=== PATIENT | male | born 1945 | race Caucasian/White ===

== ENCOUNTER 2019-06-08 17:46 | Inpatient (IN) | payer MEDICARE ==
[~2019-06-08] VITALS: Ht 185.4 cm; Wt 108.1 kg
[2019-06-08] MEDS ORDERED: IV NORMAL SALINE 1000ML BAG 1,000 ML IV ONE (18:00)
--- NOTE | 2019-06-08 18:05 | PHYS DOC ---
Past Medical History Past Medical History: Other Additional Past Medical Histor: CHRONIC BACK PAIN (SOPHIA PRITCHARD DO) Past Surgical History: Appendectomy, Knee Replacement, Other (SHOULDER , ESOPHAGUS) (SOPHIA PRITCHARD DO) Attending Signature I have participated in the care of this patient and I have reviewed and agree with all pertinent clinical information above including history, exam, and recommendations. (LUZ UGARTE MD) Adult General Chief Complaint Chief Complaint: SYNCOPE HPI HPI Patient is a 74 year old male who was brought here for shopping area after he was found down the floor. Patient did not remember what happened. Denies any chest pain, abdominal pain, no nausea vomiting. Patient denied headache, no neck pain. No back pain. He said he was at the mall shopping, THEN he woke up on the floor, looking at EMS. She denies any history of heart disease, no history of diabetes, no history hypertension. Patient has history of chronic pain, he is on oxycodone. Patient's doctor at the [facility]. He said he feels okay now. EMS REPORTED THAT PATIENT WAS CONFUSED, PALE AND DIAPHORESIS WHEN THEY FOUND HIM ON FLOOR. (SOPHIA PRITCHARD DO) Review of Systems Review of Systems aLL OTHER ros IS NEGATIVE UNLESS OTHERWISE NOTED IN hpi (OSPHIA PRITCHARD DO) Current Medications Current Medications Current Medications Medications (Trade) Dose Ordered Sig/Jade Start Time Stop Time Status Last Admin Dose Admin Sodium Chloride 1,000 ml @ 1,000 mls/hr 1X ONCE 06/08/19 18:00 06/08/19 18:59 DC 06/08/19 18:08 1,000 MLS/HR (LUZ UGARTE MD) Allergies Allergies Allergies Coded Allergies Type Severity Reaction Last Updated Verified No Known Drug Allergies 06/08/19 No (LUZ UGARTE MD) Physical Exam Physical Exam See above Constitutional: Well developed, well nourished, no acute distress, non-toxic elena earance. [] HENT: Normocephalic, atraumatic, bilateral external ears normal, oropharynx dried, no oral exudates, nose normal. [] Eyes: PERRLA, EOMI, conjunctiva normal, no discharge. [] Neck: Normal range of motion, no tenderness, supple, no stridor. [] Cardiovascular:Heart rate regular rhythm, no murmur [] Lungs & Thorax: Bilateral breath sounds clear to auscultation [] Abdomen: Bowel sounds normal, soft, no tenderness, no masses, no pulsatile m asses. [] Skin: Warm, dry, no erythema, no rash. [] Back: No tenderness, no CVA tenderness. [] Extremities: No tenderness, no cyanosis, no clubbing, ROM intact, no edema. [] Neurologic: Alert and oriented X 3, normal motor function, normal sensory function, no focal deficits noted. [] Psychologic: Affect normal, judgement normal, mood normal. [] (SOPHIA PRITCHARD DO) Current Patient Data Vital Signs Vital Signs Date Time Temp Pulse Resp B/P (MAP) Pulse Ox O2 Delivery O2 Flow Rate FiO2 06/08/19 18:17 76 18 172/72 (105) 93 Room Air 06/08/19 18:10 98.7 98.7 (LUZ UGARTE MD) Lab Values Laboratory Tests Test 06/08/19 17:51 White Blood Count 10.1 x10^3/uL (4.0-11.0) Red Blood Count 5.23 x10^6/uL (4.30-5.70) Hemoglobin 14.3 g/dL (13.0-17.5) Hematocrit 43.5 % (39.0-53.0) Mean Corpuscular Volume 83 fL (79-100) Mean Corpuscular Hemoglobin 27 pg (25-35) Mean Corpuscular Hemoglobin Concent 33 g/dL (31-37) Red Cell Distribution Width 15.2 % (11.5-14.5) H Platelet Count 232 x10^3/uL (140-400) Neutrophils (%) (Auto) 58 % (31-73) Lymphocytes (%) (Auto) 30 % (24-48) Monocytes (%) (Auto) 9 % (0-9) Eosinophils (%) (Auto) 2 % (0-3) Basophils (%) (Auto) 0 % (0-3) Neutrophils # (Auto) 5.9 x10^3/uL (1.8-7.7) Lymphocytes # (Auto) 3.0 x10^3/uL (1.0-4.8) Monocytes # (Auto) 0.9 x10^3/uL (0.0-1.1) Eosinophils # (Auto) 0.2 x10^3/uL (0.0-0.7) Basophils # (Auto) 0.0 x10^3/uL (0.0-0.2) Sodium Level 139 mmol/L (136-145) Potassium Level 4.0 mmol/L (3.5-5.1) Chloride Level 104 mmol/L (98-107) Carbon Dioxide Level 27 mmol/L (21-32) Anion Gap 8 (6-14) Blood Urea Nitrogen 20 mg/dL (8-26) Creatinine 1.3 mg/dL (0.7-1.3) Estimated GFR (Cockcroft-Gault) 53.8 BUN/Creatinine Ratio 15 (6-20) Glucose Level 108 mg/dL (70-99) H Calcium Level 9.0 mg/dL (8.5-10.1) Magnesium Level 2.0 mg/dL (1.8-2.4) Total Bilirubin 0.8 mg/dL (0.2-1.0) Aspartate Amino Transferase (AST) 20 U/L (15-37) Alanine Aminotransferase (ALT) 14 U/L (16-63) L Alkaline Phosphatase 87 U/L (46-116) Troponin I Quantitative < 0.017 ng/mL (0.000-0.055) PD-Zcl-O-Type Natriuretic Peptide 222 pg/mL (0-449) Total Protein 6.9 g/dL (6.4-8.2) Albumin 3.6 g/dL (3.4-5.0) Albumin/Globulin Ratio 1.1 (1.0-1.7) Lipase 69 U/L (73-393) L Thyroid Stimulating Hormone (TSH) 1.861 uIU/mL (0.358-3.74) Laboratory Tests 06/08/19 17:51 Laboratory Tests 06/08/19 17:51 (LUZ UGARTE MD) Lab Values Laboratory Tests Test 06/08/19 17:51 White Blood Count 10.1 x10^3/uL (4.0-11.0) Red Blood Count 5.23 x10^6/uL (4.30-5.70) Hemoglobin 14.3 g/dL (13.0-17.5) Hematocrit 43.5 % (39.0-53.0) Mean Corpuscular Volume 83 fL (79-100) Mean Corpuscular Hemoglobin 27 pg (25-35) Mean Corpuscular Hemoglobin Concent 33 g/dL (31-37) Red Cell Distribution Width 15.2 % (11.5-14.5) H Platelet Count 232 x10^3/uL (140-400) Neutrophils (%) (Auto) 58 % (31-73) Lymphocytes (%) (Auto) 30 % (24-48) Monocytes (%) (Auto) 9 % (0-9) Eosinophils (%) (Auto) 2 % (0-3) Basophils (%) (Auto) 0 % (0-3) Neutrophils # (Auto) 5.9 x10^3/uL (1.8-7.7) Lymphocytes # (Auto) 3.0 x10^3/uL (1.0-4.8) Monocytes # (Auto) 0.9 x10^3/uL (0.0-1.1) Eosinophils # (Auto) 0.2 x10^3/uL (0.0-0.7) Basophils # (Auto) 0.0 x10^3/uL (0.0-0.2) Sodium Level 139 mmol/L (136-145) Potassium Level 4.0 mmol/L (3.5-5.1) Chloride Level 104 mmol/L (98-107) Carbon Dioxide Level 27 mmol/L (21-32) Anion Gap 8 (6-14) Blood Urea Nitrogen 20 mg/dL (8-26) Creatinine 1.3 mg/dL (0.7-1.3) Estimated GFR (Cockcroft-Gault) 53.8 BUN/Creatinine Ratio 15 (6-20) Glucose Level 108 mg/dL (70-99) H Calcium Level 9.0 mg/dL (8.5-10.1) Magnesium Level 2.0 mg/dL (1.8-2.4) Total Bilirubin 0.8 mg/dL (0.2-1.0) Aspartate Amino Transferase (AST) 20 U/L (15-37) Alanine Aminotransferase (ALT) 14 U/L (16-63) L Alkaline Phosphatase 87 U/L (46-116) Troponin I Quantitative < 0.017 ng/mL (0.000-0.055) AX-Zwc-N-Type Natriuretic Peptide 222 pg/mL (0-449) Total Protein 6.9 g/dL (6.4-8.2) Albumin 3.6 g/dL (3.4-5.0) Albumin/Globulin Ratio 1.1 (1.0-1.7) Lipase 69 U/L (73-393) L Thyroid Stimulating Hormone (TSH) 1.861 uIU/mL (0.358-3.74) Laboratory Tests 06/08/19 17:51 Laboratory Tests 06/08/19 17:51 (SOPHIA PRITCHARD DO) EKG EKG EKG WAS DONE AT 1751, RATE OF 89 BPM, PVC, RBBB, NO STEMI. (SOPHIA PRITCHARD DO) Radiology/Procedures Radiology/Procedures [] (SOPHIA PRITCHARD DO) Course & Med Decision Making Course & Med Decision Making Pertinent Labs and Imaging studies reviewed. (See chart for details) [] (SOPHIA PRITCHARD DO) Course & Med Decision Making Labs/Imaging reviewed. EkG with prolonged QTc and syncopal episode. Mg, K, Calcium normal. CT reviewed without acute process identified. Trop normal. Patient denies chest pain at this time however given prolonged QTc and syncop will admit with further Cardiology evaluation. (LUZ UGARTE MD) Dragon Disclaimer Dragon Disclaimer This electronic medical record was generated, in whole or in part, using a voice recognition dictation system. (SOPHIA PRITCHARD DO) Departure Departure Impression: Primary Impression: Syncope and collapse Additional Impression: Prolonged Q-T interval on ECG Disposition: ADMITTED INPATIENT Admitting Physician: FELICITA (LUZ UGARTE MD) Condition: STABLE Critical Care Time Critical care time was [] minutes exclusive of procedures. (SOPHIA PRITCHARD DO) Critical Care Time Critical care time was 35 minutes exclusive of procedures. (LUZ UGARTE MD) Problem Qualifiers SOPHIA PRITCHARD DO Jun 08, 2019 18:05 LUZ UGARTE MD Jun 08, 2019 19:14
[2019-06-08 18:11] LABS: BASO % 0 % (0-3); EOS # 0.2 x10^3/uL (0.0-0.7); EOS % 2 % (0-3); HEMATOCRIT 43.5 % (39.0-53.0); HEMOGLOBIN 14.3 g/dL (13.0-17.5); LYMPH % 30 % (24-48); MEAN CORPUSCULAR HEMOGLOBIN 27 pg (25-35); MEAN CORPUSCULAR HGB CONC 33 g/dL (31-37); MEAN CORPUSCULAR VOLUME 83 fL (79-100); MONO # 0.9 x10^3/uL (0.0-1.1); MONO % 9 % (0-9); NEUT # 5.9 x10^3/uL (1.8-7.7); NEUT % 58 % (31-73); PLATELET COUNT 232 x10^3/uL (140-400); RED BLOOD COUNT 5.23 x10^6/uL (4.30-5.70); RED CELL DISTRIBUTION WIDTH 15.2 % (11.5-14.5); WHITE BLOOD COUNT 10.1 x10^3/uL (4.0-11.0)
[2019-06-08 18:25] LABS: CREATININE 1.3 mg/dL (0.7-1.3); GFR 53.8
[2019-06-08 18:30] LABS: ALBUMIN 3.6 g/dL (3.4-5.0); ALBUMIN/GLOBULIN RATIO 1.1 (1.0-1.7); TOTAL BILIRUBIN 0.8 mg/dL (0.2-1.0); TOTAL PROTEIN 6.9 g/dL (6.4-8.2)
--- NOTE | 2019-06-08 19:01 | RAD ---
CT scan of the head without contrast 06/08/2019 Clinical History: Syncope. Fall with headache. Technique: Unenhanced, contiguous, 5 mm axial sections were obtained through the head. One or more of the following individualized dose reduction techniques were utilized for this study: 1. Automated exposure control. 2. Adjustment of the mA and/or kV according to patient size. 3. Use of iterative reconstruction technique. Findings: There is generalized parenchymal atrophy. Areas of decreased attenuation are seen within the periventricular and subcortical white matter of both cerebral hemispheres consistent with areas of small vessel ischemic disease. No acute parenchymal abnormality is seen. No extra-axial fluid collection is noted. No skull fracture is seen. Impression: No acute intracranial abnormality is seen. CT scan of the cervical spine without contrast 06/08/2019 Clinical history: Fall with neck pain. Are Technique: Unenhanced, contiguous, 0.625 mm axial sections were obtained through the cervical spine. Axial, coronal and sagittal reconstructed images were obtained. One or more of the following individualized dose reduction techniques were utilized for this study: 1. Automated exposure control. 2. Adjustment of the mA and/or kV according to patient size. 3. Use of iterative reconstruction technique. Findings: Sagittal and coronal reconstructed images demonstrate reversal of the normal cervical lordosis. Very mild lateral curvature of the cervical spine is seen convex to the left. Degenerative changes consisting of disc space narrowing, vertebral endplate sclerosis and mild to moderate anterior and posterior vertebral body osteophyte formation are seen throughout the cervical disc spaces. No fracture or subluxation of the cervical vertebrae is seen. Degenerative changes are seen involving the uncovertebral and facet joints throughout the cervical disc spaces. No fracture or subluxation of the cervical vertebrae is seen. Impression: No fracture or subluxation of the cervical vertebra is identified. Electronically signed by: Burt Gómez MD (06/08/2019 6:59 PM) [id number]
[2019-06-08] MEDS ORDERED: ACETAMINOPHEN 325 MG TABLET. PO PRN ×2 (19:30→22:15)
[2019-06-08 20:37] LABS: BILIRUBIN,URINE NEGATIVE (NEG); CLARITY,URINE CLEAR; COLOR,URINE YELLOW; NITRITE,URINE NEGATIVE (NEG); PROTEIN,URINE NEGATIVE (NEG-TRACE); UROBILINOGEN,URINE 0.2 mg/dL (0.2 mg/dL)
[2019-06-08 20:47] LABS: SQUAMOUS EPITHELIAL CELL,UR OCC /LPF
[2019-06-08 20:48] LABS: BACTERIA,URINE 0 /HPF (0-FEW); RBC,URINE 0 /HPF (0-2); WBC,URINE 0 /HPF (0-4)
[2019-06-08] MEDS ORDERED: oxyCODONE IR 5 MG TABLET PO PRN (22:15)
--- NOTE | 2019-06-08 22:24 | PDOC1 ---
History and Physical Date of Admission Date of Admission DATE: 06/08/19 TIME: 22:20 Source Source: Chart review, Patient History of Present Illness History of Present Illness Mr. Hutchison, is a 74 year old male admit for syncope, He was at a shopping area after he was found down the floor.he had no recollection, and feels fine, Denies any chest pain, abdominal pain, no nausea vomiting. Patient denied headache, no neck pain. No back pain. He said he was at the mall shopping, awoke on the floor, looking at EMS. scant med history,k Patient has history of chronic pain, he is on oxycodone for back pain from scoliosis and left hip pain,. Patient's doctor at the [facility]. he is 50% service connected for PTSD, Past Medical History Cardiovascular: No pertinent hx Pulmonary: No pertinent hx Psych: Anxiety, Other (ptsd) Musculoskeletal: low back pain, Osteoarthritis, Other (scoliosis) Renal/: No pertinent hx Endocrine: No pertinent hx Social History Smoke: Quit ALCOHOL: none Drugs: None Current Problem List Problem List Problems Medical Problems: (1) Prolonged Q-T interval on ECG Status: Acute (2) Syncope and collapse Status: Acute Current Medications Current Medications Current Medications Sodium Chloride 1,000 ml @ 1,000 mls/hr 1X ONCE IV Last administered on 06/08/19at 18:08; Start 06/08/19 at 18:00; Stop 06/08/19 at 18:59; Status DC Acetaminophen (Tylenol) 650 mg PRN Q4HRS PRN PO FEVER; Start 06/08/19 at 19:30; Stop 06/09/19 at 19:29 Oxycodone HCl (Roxicodone) 20 mg PRN Q6HRS PRN PO SEVERE PAIN; Start 06/08/19 at 22:15 Acetaminophen (Tylenol) 650 mg PRN Q6HRS PRN PO pain; Start 06/08/19 at 22:15; Status UNV Amlodipine Besylate (Norvasc) 2.5 mg DAILY PO ; Start 06/09/19 at 09:00; Status UNV Allergies Allergies: Coded Allergies: No Known Drug Allergies (Unverified , 06/08/19) ROS General: No: Chills, Night Sweats, Fatigue, Malaise, Appetite, Other PSYCHOLOGICAL ROS: No: Anxiety, Behavioral Disorder, Concentration difficultie, Decreased libido, Depression, Disorientation, Hallucinations, Hostility, Irritablity, Memory difficulties, Mood Swings, Obsessive thoughts, Physical abuse, Sexual abuse, Sleep disturbances, Suicidal ideation, Other Eyes: No Blurry vision, No Decreased vision, No Double vision, No Dry eyes, No Excessive tearing, No Eye Pain, No Itchy Eyes, No Loss of vision, No Photophobia, No Scotomata, No Uses contacts, No Uses glasses, No Other Respiratory: No: Cough, Hemoptysis, Orthopnea, Pleuritic Pain, Shortness of breath, SOB with excertion, Sputum Changes, Stridor, Tachypnea, Wheezing, Other Cardiovascular: No Chest Pain, No Palpitations, No Orthopnea, No Paroxysmal Noc. Dyspnea, No Edema, No Lt Headedness, No Other Gastrointestinal: No Nausea, No Vomiting, No Abdominal Pain, No Diarrhea, No Constipation, No Melena, No Hematochezia, No Other Genitourinary: No Dysuria, No Frequency, No Incontinence, No Hematuria, No Retention, No Discharge, No Urgency, No Pain, No Flank Pain, No Other, No , No , No , No , No , No , No Musculoskeletal: Yes Joint Pain, Yes Joint Stiffness, Yes Pain In: (back, hip); No Gait Disturbance, No Joint Swelling, No Muscle Pain, No Muscular Weakness, No Swelling In:, No Other Neurological: No Behavorial Changes, No Bowel/Bladder ControlChng, No Confusion, No Dizziness, No Gait Disturbance, No Headaches, No Impaired Coord/balance, No Memory Loss, No Numbness/Tingling, No Seizures, No Speech Problems, No Tremors, No Visual Changes, No Weakness, No Other Skin: Yes Dry Skin; No Eczema, No Hair Changes, No Lumps, No Mole Changes, No Mottling, No Nail Changes, No Pruritus, No Rash, No Skin Lesion Changes, No Other, No Acne Physical Exam General: Alert, Oriented X3, Cooperative, No acute distress HEENT: Atraumatic, PERRLA, Mucous membr. moist/pink Lungs: Clear to auscultation, Normal air movement Heart: S1S2, no gallops Rectal Exam: not examined Extremities: No clubbing, No cyanosis, No edema, Normal pulses Skin: No breakdown, No significant lesion Neuro: Normal speech, Normal tone, Sensation intact, Cranial nerves 3-12 NL Psych/Mental Status: Mental status NL, Mood NL Vitals Vitals Vital Signs Date Time Temp Pulse Resp B/P (MAP) Pulse Ox O2 Delivery O2 Flow Rate FiO2 06/08/19 19:51 72 18 172/74 (106) 96 Room Air 06/08/19 18:10 98.7 98.7 Labs Labs Laboratory Tests Test 06/08/19 17:51 06/08/19 20:30 White Blood Count 10.1 x10^3/uL (4.0-11.0) Red Blood Count 5.23 x10^6/uL (4.30-5.70) Hemoglobin 14.3 g/dL (13.0-17.5) Hematocrit 43.5 % (39.0-53.0) Mean Corpuscular Volume 83 fL (79-100) Mean Corpuscular Hemoglobin 27 pg (25-35) Mean Corpuscular Hemoglobin Concent 33 g/dL (31-37) Red Cell Distribution Width 15.2 % (11.5-14.5) Platelet Count 232 x10^3/uL (140-400) Neutrophils (%) (Auto) 58 % (31-73) Lymphocytes (%) (Auto) 30 % (24-48) Monocytes (%) (Auto) 9 % (0-9) Eosinophils (%) (Auto) 2 % (0-3) Basophils (%) (Auto) 0 % (0-3) Neutrophils # (Auto) 5.9 x10^3/uL (1.8-7.7) Lymphocytes # (Auto) 3.0 x10^3/uL (1.0-4.8) Monocytes # (Auto) 0.9 x10^3/uL (0.0-1.1) Eosinophils # (Auto) 0.2 x10^3/uL (0.0-0.7) Basophils # (Auto) 0.0 x10^3/uL (0.0-0.2) Sodium Level 139 mmol/L (136-145) Potassium Level 4.0 mmol/L (3.5-5.1) Chloride Level 104 mmol/L (98-107) Carbon Dioxide Level 27 mmol/L (21-32) Anion Gap 8 (6-14) Blood Urea Nitrogen 20 mg/dL (8-26) Creatinine 1.3 mg/dL (0.7-1.3) Estimated GFR (Cockcroft-Gault) 53.8 BUN/Creatinine Ratio 15 (6-20) Glucose Level 108 mg/dL (70-99) Calcium Level 9.0 mg/dL (8.5-10.1) Magnesium Level 2.0 mg/dL (1.8-2.4) Total Bilirubin 0.8 mg/dL (0.2-1.0) Aspartate Amino Transf (AST/SGOT) 20 U/L (15-37) Alanine Aminotransferase (ALT/SGPT) 14 U/L (16-63) Alkaline Phosphatase 87 U/L (46-116) Troponin I Quantitative < 0.017 ng/mL (0.000-0.055) XP-Woi-X-Type Natriuretic Peptide 222 pg/mL (0-449) Total Protein 6.9 g/dL (6.4-8.2) Albumin 3.6 g/dL (3.4-5.0) Albumin/Globulin Ratio 1.1 (1.0-1.7) Lipase 69 U/L (73-393) Thyroid Stimulating Hormone (TSH) 1.861 uIU/mL (0.358-3.74) Urine Collection Type Unknown Urine Color Yellow Urine Clarity Clear Urine pH 5.0 Urine Specific Sixes 1.015 Urine Protein Negative mg/dL (NEG-TRACE) Urine Glucose (UA) Negative mg/dL (NEG) Urine Ketones (Stick) Negative mg/dL (NEG) Urine Blood Negative (NEG) Urine Nitrite Negative (NEG) Urine Bilirubin Negative (NEG) Urine Urobilinogen Dipstick 0.2 mg/dL (0.2 mg/dL) Urine Leukocyte Esterase Negative (NEG) Urine RBC 0 /HPF (0-2) Urine WBC 0 /HPF (0-4) Urine Squamous Epithelial Cells Occ /LPF Urine Bacteria 0 /HPF (0-FEW) Urine Mucus Slight /LPF Laboratory Tests Test 06/08/19 17:51 06/08/19 20:30 White Blood Count 10.1 x10^3/uL (4.0-11.0) Red Blood Count 5.23 x10^6/uL (4.30-5.70) Hemoglobin 14.3 g/dL (13.0-17.5) Hematocrit 43.5 % (39.0-53.0) Mean Corpuscular Volume 83 fL (79-100) Mean Corpuscular Hemoglobin 27 pg (25-35) Mean Corpuscular Hemoglobin Concent 33 g/dL (31-37) Red Cell Distribution Width 15.2 % (11.5-14.5) Platelet Count 232 x10^3/uL (140-400) Neutrophils (%) (Auto) 58 % (31-73) Lymphocytes (%) (Auto) 30 % (24-48) Monocytes (%) (Auto) 9 % (0-9) Eosinophils (%) (Auto) 2 % (0-3) Basophils (%) (Auto) 0 % (0-3) Neutrophils # (Auto) 5.9 x10^3/uL (1.8-7.7) Lymphocytes # (Auto) 3.0 x10^3/uL (1.0-4.8) Monocytes # (Auto) 0.9 x10^3/uL (0.0-1.1) Eosinophils # (Auto) 0.2 x10^3/uL (0.0-0.7) Basophils # (Auto) 0.0 x10^3/uL (0.0-0.2) Sodium Level 139 mmol/L (136-145) Potassium Level 4.0 mmol/L (3.5-5.1) Chloride Level 104 mmol/L (98-107) Carbon Dioxide Level 27 mmol/L (21-32) Anion Gap 8 (6-14) Blood Urea Nitrogen 20 mg/dL (8-26) Creatinine 1.3 mg/dL (0.7-1.3) Estimated GFR (Cockcroft-Gault) 53.8 BUN/Creatinine Ratio 15 (6-20) Glucose Level 108 mg/dL (70-99) Calcium Level 9.0 mg/dL (8.5-10.1) Magnesium Level 2.0 mg/dL (1.8-2.4) Total Bilirubin 0.8 mg/dL (0.2-1.0) Aspartate Amino Transf (AST/SGOT) 20 U/L (15-37) Alanine Aminotransferase (ALT/SGPT) 14 U/L (16-63) Alkaline Phosphatase 87 U/L (46-116) Troponin I Quantitative < 0.017 ng/mL (0.000-0.055) LR-Dar-A-Type Natriuretic Peptide 222 pg/mL (0-449) Total Protein 6.9 g/dL (6.4-8.2) Albumin 3.6 g/dL (3.4-5.0) Albumin/Globulin Ratio 1.1 (1.0-1.7) Lipase 69 U/L (73-393) Thyroid Stimulating Hormone (TSH) 1.861 uIU/mL (0.358-3.74) Urine Collection Type Unknown Urine Color Yellow Urine Clarity Clear Urine pH 5.0 Urine Specific Sixes 1.015 Urine Protein Negative mg/dL (NEG-TRACE) Urine Glucose (UA) Negative mg/dL (NEG) Urine Ketones (Stick) Negative mg/dL (NEG) Urine Blood Negative (NEG) Urine Nitrite Negative (NEG) Urine Bilirubin Negative (NEG) Urine Urobilinogen Dipstick 0.2 mg/dL (0.2 mg/dL) Urine Leukocyte Esterase Negative (NEG) Urine RBC 0 /HPF (0-2) Urine WBC 0 /HPF (0-4) Urine Squamous Epithelial Cells Occ /LPF Urine Bacteria 0 /HPF (0-FEW) Urine Mucus Slight /LPF VTE Prophylaxis Ordered VTE Prophylaxis Devices: No VTE Pharmacological Prophylaxi: No Assessment/Plan Assessment/Plan syncope with LOC long QT syndrome, tele, CV consult , admit, QTc > 500 recent admit for narcotic overdose, poss fentanyl laced oxy as he got some not from a pharmacy chronic pain disorder, takes 20 oxy QID obese, BMI 31 htn, start [facility] TYSHAWN FLORES MD Jun 08, 2019 22:24
[2019-06-08 22:29] LABS: BARBITURATES NEG (NEG); BENZODIAZEPINES NEG (NEG); CANNABINOIDS NEG (NEG); COCAINE NEG (NEG); METHADONE NEG (NEG); OPIATES POS (NEG); PHENCYCLIDINE NEG (NEG)
[2019-06-08 22:30] LABS: AMPHETAMINE/METHAMPHETAMINE NEG (NEG)
--- NOTE | 2019-06-08 23:01 | EKG ---
[facility] [address] [place] [address] Test Date: 2019-06-08 Test Time: 17:51:26 Pat Name: GARCIA WILKES Department: Room: ED HOLD 4 Gender: M Automatic Mounter: : 1945 Requested By: SOPHIA PRITCHARD Order Number: [id number] Reading MD: Arron Katz MD Measurements Intervals [place] Rate: 89 P: 33 NV: 214 QRS: -83 QRSD: 174 T: 62 QT: 416 QTc: 507 Interpretive Statements SINUS RHYTHM VENTRICULAR PREMATURE COMPLEX(ES), BIGEMINY PROLONGED NV INTERVAL Electronically Signed On 06-09-2019 14:54:13 AUDIOLOGY ASSISTANT by Arron Katz MD
--- NOTE | 2019-06-08 23:18 | RAD ---
Exam: Chest one view INDICATION: Ankle TECHNIQUE: Frontal view of the chest Comparisons: None FINDINGS: The cardiomediastinal silhouette and pulmonary vessels are within normal limits. Small left pleural effusion. Remaining lungs are clear. IMPRESSION: Trace left pleural effusion. Electronically signed by: Abiel Stoner MD (06/08/2019 11:15 PM) [id number]
[2019-06-09] MEDS ORDERED: ZOLPIDEM 5 MG TABLET. PO PRN
[2019-06-09 01:30] LABS: BASO % 0 % (0-3); EOS # 0.3 x10^3/uL (0.0-0.7); EOS % 4 % (0-3); HEMATOCRIT 38.2 % (39.0-53.0); HEMOGLOBIN 12.7 g/dL (13.0-17.5); LYMPH # 1.9 x10^3/uL (1.0-4.8); LYMPH % 25 % (24-48); MEAN CORPUSCULAR HEMOGLOBIN 28 pg (25-35); MEAN CORPUSCULAR HGB CONC 33 g/dL (31-37); MEAN CORPUSCULAR VOLUME 83 fL (79-100); MONO # 0.8 x10^3/uL (0.0-1.1); MONO % 11 % (0-9); NEUT # 4.7 x10^3/uL (1.8-7.7); NEUT % 60 % (31-73); PLATELET COUNT 185 x10^3/uL (140-400); RED BLOOD COUNT 4.61 x10^6/uL (4.30-5.70); RED CELL DISTRIBUTION WIDTH 15.5 % (11.5-14.5); WHITE BLOOD COUNT 7.7 x10^3/uL (4.0-11.0)
[2019-06-09 01:46] LABS: ALBUMIN 2.8 g/dL (3.4-5.0); CALCIUM 8.1 mg/dL (8.5-10.1); CREATININE 1.2 mg/dL (0.7-1.3); POTASSIUM 3.7 mmol/L (3.5-5.1); TOTAL BILIRUBIN 0.4 mg/dL (0.2-1.0); TOTAL PROTEIN 5.6 g/dL (6.4-8.2)
[2019-06-09 07:17] VITALS: BP 141/68
[2019-06-09] MEDS ORDERED: amLODIPine BESYLATE 5 MG TABLET PO SCH (09:00)
[2019-06-09 11:07] VITALS: BP 133/78
[2019-06-09 14:34] VITALS: BP 139/77
--- NOTE | 2019-06-09 15:19 | EKG ---
[facility] [address] [place] [address] Test Date: 2019-06-09 Test Time: 15:01:30 Pat Name: GARCIA WILKES Department: Room: ED HOLD 11 Gender: M [employer] Marker: : 1945 Requested By: SAMUEL HAIRSTON Order Number: [id number] Reading MD: Samuel Hairston MD Measurements Intervals [place] Rate: 75 P: 26 GA: 210 QRS: -60 QRSD: 140 T: 30 QT: 442 QTc: 496 Interpretive Statements SINUS RHYTHM ABNORMAL LEFT AXIS DEVIATION LEFT ANTERIOR FASCICULAR BLOCK RIGHT BUNDLE BRANCH BLOCK BIFASCICULAR BLOCK Electronically Signed On 06-09-2019 21:25:30 ASSOCIATE PROFESSOR OF MEDIA ARTS by Samuel Hairston MD
--- NOTE | 2019-06-09 15:19 | PDOC3 ---
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 Narcotic overdose? essential hypertension Brief Hospital Course Allergies Allergies Coded Allergies Type Severity Reaction Last Updated Verified No Known Drug Allergies 06/08/19 No Vital Signs Vital Signs Date Time Temp Pulse Resp B/P (MAP) Pulse Ox O2 Delivery O2 Flow Rate FiO2 06/09/19 14:34 98.3 83 20 139/77 (97) 98 Room Air 98.3 Lab Results Laboratory Tests Test 06/08/19 17:51 06/08/19 20:30 06/08/19 22:40 06/09/19 01:20 White Blood Count 10.1 x10^3/uL (4.0-11.0) 7.7 x10^3/uL (4.0-11.0) Red Blood Count 5.23 x10^6/uL (4.30-5.70) 4.61 x10^6/uL (4.30-5.70) Hemoglobin 14.3 g/dL (13.0-17.5) 12.7 g/dL (13.0-17.5) Hematocrit 43.5 % (39.0-53.0) 38.2 % (39.0-53.0) Mean Corpuscular Volume 83 fL (79-100) 83 fL (79-100) Mean Corpuscular Hemoglobin 27 pg (25-35) 28 pg (25-35) Mean Corpuscular Hemoglobin Concent 33 g/dL (31-37) 33 g/dL (31-37) Red Cell Distribution Width 15.2 % (11.5-14.5) 15.5 % (11.5-14.5) Platelet Count 232 x10^3/uL (140-400) 185 x10^3/uL (140-400) Neutrophils (%) (Auto) 58 % (31-73) 60 % (31-73) Lymphocytes (%) (Auto) 30 % (24-48) 25 % (24-48) Monocytes (%) (Auto) 9 % (0-9) 11 % (0-9) Eosinophils (%) (Auto) 2 % (0-3) 4 % (0-3) Basophils (%) (Auto) 0 % (0-3) 0 % (0-3) Neutrophils # (Auto) 5.9 x10^3/uL (1.8-7.7) 4.7 x10^3/uL (1.8-7.7) Lymphocytes # (Auto) 3.0 x10^3/uL (1.0-4.8) 1.9 x10^3/uL (1.0-4.8) Monocytes # (Auto) 0.9 x10^3/uL (0.0-1.1) 0.8 x10^3/uL (0.0-1.1) Eosinophils # (Auto) 0.2 x10^3/uL (0.0-0.7) 0.3 x10^3/uL (0.0-0.7) Basophils # (Auto) 0.0 x10^3/uL (0.0-0.2) 0.0 x10^3/uL (0.0-0.2) Sodium Level 139 mmol/L (136-145) 141 mmol/L (136-145) Potassium Level 4.0 mmol/L (3.5-5.1) 3.7 mmol/L (3.5-5.1) Chloride Level 104 mmol/L (98-107) 107 mmol/L (98-107) Carbon Dioxide Level 27 mmol/L (21-32) 29 mmol/L (21-32) Anion Gap 8 (6-14) 5 (6-14) Blood Urea Nitrogen 20 mg/dL (8-26) 19 mg/dL (8-26) Creatinine 1.3 mg/dL (0.7-1.3) 1.2 mg/dL (0.7-1.3) Estimated GFR (Cockcroft-Gault) 53.8 59.0 BUN/Creatinine Ratio 15 (6-20) 16 (6-20) Glucose Level 108 mg/dL (70-99) 133 mg/dL (70-99) Calcium Level 9.0 mg/dL (8.5-10.1) 8.1 mg/dL (8.5-10.1) Magnesium Level 2.0 mg/dL (1.8-2.4) Total Bilirubin 0.8 mg/dL (0.2-1.0) 0.4 mg/dL (0.2-1.0) Aspartate Amino Transf (AST/SGOT) 20 U/L (15-37) 10 U/L (15-37) Alanine Aminotransferase (ALT/SGPT) 14 U/L (16-63) 9 U/L (16-63) Alkaline Phosphatase 87 U/L (46-116) 73 U/L (46-116) Troponin I Quantitative < 0.017 ng/mL (0.000-0.055) < 0.017 ng/mL (0.000-0.055) < 0.017 ng/mL (0.000-0.055) EV-Dal-G-Type Natriuretic Peptide 222 pg/mL (0-449) Total Protein 6.9 g/dL (6.4-8.2) 5.6 g/dL (6.4-8.2) Albumin 3.6 g/dL (3.4-5.0) 2.8 g/dL (3.4-5.0) Albumin/Globulin Ratio 1.1 (1.0-1.7) 1.0 (1.0-1.7) Lipase 69 U/L (73-393) Thyroid Stimulating Hormone (TSH) 1.861 uIU/mL (0.358-3.74) Urine Collection Type Unknown Urine Color Yellow Urine Clarity Clear Urine pH 5.0 Urine Specific [place] 1.015 Urine Protein Negative mg/dL (NEG-TRACE) Urine Glucose (UA) Negative mg/dL (NEG) Urine Ketones (Stick) Negative mg/dL (NEG) Urine Blood Negative (NEG) Urine Nitrite Negative (NEG) Urine Bilirubin Negative (NEG) Urine Urobilinogen Dipstick 0.2 mg/dL (0.2 mg/dL) Urine Leukocyte Esterase Negative (NEG) Urine RBC 0 /HPF (0-2) Urine WBC 0 /HPF (0-4) Urine Squamous Epithelial Cells Occ /LPF Urine Bacteria 0 /HPF (0-FEW) Urine Mucus Slight /LPF Urine Opiates Screen Pos (NEG) Urine Methadone Screen Neg (NEG) Urine Barbiturates Neg (NEG) Urine Phencyclidine Screen Neg (NEG) Urine Amphetamine/Methamphetamine Neg (NEG) Urine Benzodiazepines Screen Neg (NEG) Urine Cocaine Screen Neg (NEG) Urine Cannabinoids Screen Neg (NEG) Urine Ethyl Alcohol Neg (NEG) Laboratory Tests Test 06/08/19 17:51 06/08/19 20:30 06/08/19 22:40 06/09/19 01:20 White Blood Count 10.1 x10^3/uL (4.0-11.0) 7.7 x10^3/uL (4.0-11.0) Red Blood Count 5.23 x10^6/uL (4.30-5.70) 4.61 x10^6/uL (4.30-5.70) Hemoglobin 14.3 g/dL (13.0-17.5) 12.7 g/dL (13.0-17.5) Hematocrit 43.5 % (39.0-53.0) 38.2 % (39.0-53.0) Mean Corpuscular Volume 83 fL (79-100) 83 fL (79-100) Mean Corpuscular Hemoglobin 27 pg (25-35) 28 pg (25-35) Mean Corpuscular Hemoglobin Concent 33 g/dL (31-37) 33 g/dL (31-37) Red Cell Distribution Width 15.2 % (11.5-14.5) 15.5 % (11.5-14.5) Platelet Count 232 x10^3/uL (140-400) 185 x10^3/uL (140-400) Neutrophils (%) (Auto) 58 % (31-73) 60 % (31-73) Lymphocytes (%) (Auto) 30 % (24-48) 25 % (24-48) Monocytes (%) (Auto) 9 % (0-9) 11 % (0-9) Eosinophils (%) (Auto) 2 % (0-3) 4 % (0-3) Basophils (%) (Auto) 0 % (0-3) 0 % (0-3) Neutrophils # (Auto) 5.9 x10^3/uL (1.8-7.7) 4.7 x10^3/uL (1.8-7.7) Lymphocytes # (Auto) 3.0 x10^3/uL (1.0-4.8) 1.9 x10^3/uL (1.0-4.8) Monocytes # (Auto) 0.9 x10^3/uL (0.0-1.1) 0.8 x10^3/uL (0.0-1.1) Eosinophils # (Auto) 0.2 x10^3/uL (0.0-0.7) 0.3 x10^3/uL (0.0-0.7) Basophils # (Auto) 0.0 x10^3/uL (0.0-0.2) 0.0 x10^3/uL (0.0-0.2) Sodium Level 139 mmol/L (136-145) 141 mmol/L (136-145) Potassium Level 4.0 mmol/L (3.5-5.1) 3.7 mmol/L (3.5-5.1) Chloride Level 104 mmol/L (98-107) 107 mmol/L (98-107) Carbon Dioxide Level 27 mmol/L (21-32) 29 mmol/L (21-32) Anion Gap 8 (6-14) 5 (6-14) Blood Urea Nitrogen 20 mg/dL (8-26) 19 mg/dL (8-26) Creatinine 1.3 mg/dL (0.7-1.3) 1.2 mg/dL (0.7-1.3) Estimated GFR (Cockcroft-Gault) 53.8 59.0 BUN/Creatinine Ratio 15 (6-20) 16 (6-20) Glucose Level 108 mg/dL (70-99) 133 mg/dL (70-99) Calcium Level 9.0 mg/dL (8.5-10.1) 8.1 mg/dL (8.5-10.1) Magnesium Level 2.0 mg/dL (1.8-2.4) Total Bilirubin 0.8 mg/dL (0.2-1.0) 0.4 mg/dL (0.2-1.0) Aspartate Amino Transf (AST/SGOT) 20 U/L (15-37) 10 U/L (15-37) Alanine Aminotransferase (ALT/SGPT) 14 U/L (16-63) 9 U/L (16-63) Alkaline Phosphatase 87 U/L (46-116) 73 U/L (46-116) Troponin I Quantitative < 0.017 ng/mL (0.000-0.055) < 0.017 ng/mL (0.000-0.055) < 0.017 ng/mL (0.000-0.055) UB-Hvq-N-Type Natriuretic Peptide 222 pg/mL (0-449) Total Protein 6.9 g/dL (6.4-8.2) 5.6 g/dL (6.4-8.2) Albumin 3.6 g/dL (3.4-5.0) 2.8 g/dL (3.4-5.0) Albumin/Globulin Ratio 1.1 (1.0-1.7) 1.0 (1.0-1.7) Lipase 69 U/L (73-393) Thyroid Stimulating Hormone (TSH) 1.861 uIU/mL (0.358-3.74) Urine Collection Type Unknown Urine Color Yellow Urine Clarity Clear Urine pH 5.0 Urine Specific [place] 1.015 Urine Protein Negative mg/dL (NEG-TRACE) Urine Glucose (UA) Negative mg/dL (NEG) Urine Ketones (Stick) Negative mg/dL (NEG) Urine Blood Negative (NEG) Urine Nitrite Negative (NEG) Urine Bilirubin Negative (NEG) Urine Urobilinogen Dipstick 0.2 mg/dL (0.2 mg/dL) Urine Leukocyte Esterase Negative (NEG) Urine RBC 0 /HPF (0-2) Urine WBC 0 /HPF (0-4) Urine Squamous Epithelial Cells Occ /LPF Urine Bacteria 0 /HPF (0-FEW) Urine Mucus Slight /LPF Urine Opiates Screen Pos (NEG) Urine Methadone Screen Neg (NEG) Urine Barbiturates Neg (NEG) Urine Phencyclidine Screen Neg (NEG) Urine Amphetamine/Methamphetamine Neg (NEG) Urine Benzodiazepines Screen Neg (NEG) Urine Cocaine Screen Neg (NEG) Urine Cannabinoids Screen Neg (NEG) Urine Ethyl Alcohol Neg (NEG) Brief Hospital Course [facility] History & Physical Patient Name: Stefan Hutchison Unit Number: [id number] Date of : 1945 Patient Status: Admitted Inpatient Attending Doctor: Renae Kate MD History and Physical History and Physical Date of Admission Date of Admission DATE: 06/08/19 TIME: 22:20 Source Source: Chart review, Patient History of Present Illness History of Present Illness Mr. Hutchison, is a 74 year old male admit for syncope, He was at a shopping area after he was found down the floor.he had no recollection, and feels fine, Denies any chest pain, abdominal pain, no nausea vomiting. Patient denied headache, no neck pain. No back pain. He said he was at the mall shopping, awoke on the floor, looking at EMS. scant med history,k Patient has history of chronic pain, he is on oxycodone for back pain from scoliosis and left hip pain,. Patient's doctor at the [facility]. he is 50% service connected for PTSD, Mr. Hutchison is a 74 old male who presented to the emergency department because of the above-mentioned syncopal episode. There was a question of a QT prolongation. But after reviewing reportsfrom emergency department and nursing staff reports patient has been unfortunately abusing every so often certain "pills". He does not recall what kind of medication he was taking on top of his usual prescribed narcotics. Vision is positive on his urine drug panel for n arcotics which he is on but no other substances were found. He was in consultation by cardiology due to a QT prolongation noted on EKG and they have recommended outpatient workup with an echocardiogram at the [facility]. I admitting physician started patient on Norvasc 2.5 mg due to high blood pressure he has been well-controlled during his hospital stay. I have prompted patient to follow-up with his primary care physician noted to address his issues. At the time of this note there were no medications reported by patient he understands the signs and symptoms of alarmed that I have explained to him prior to dismissal. All his concerns were addressed to the best of my abilities Syncopal episode may have been due to an unknown substance intake. Follow up at the [facility] for ECHo and HTN evaluation strongly encouraged. Discharge Information Condition at Discharge: Improved Follow Up: Weeks Disposition/Orders: D/C to Home No Active Prescriptions or Reported Meds MAE KINGSLEY MD Jun 09, 2019 15:19
--- NOTE | 2019-06-09 21:28 | PDOC2 ---
CARDIOLOGY CONSULT NOTE CHEIF COMPLAINT: Syncopal episode with a prolonged QTC HPI: Stefan is a 74-year-old man who was brought to the hospital in the setting of a syncopal episode. He reports that he took a pain pill that he bought off the streets and several hours later after going to the grocery store felt lightheaded and dizzy and was on the floor. He thinks this was a fentanyl during negative. He reports a similar episode after last taking a pill several weeks ago. At the urging of his family he came to the hospital. Evaluation the hospital thus far has not revealed any pathology. Cardiology was asked to comment on his EKG and bigeminal rhythm. In speaking with the patient he specifically denies any anginal symptoms, dyspnea, orthopnea, PND or lower extremity edema. He has not had any other acute issues. He denies any other drug use. PMHX: Patient denies any other significant past medical history. He does not take any medications regularly. SOCHX: He denies any current alcohol, tobacco or illicit drug use. FAMHX: Noncontributory CURRENT MEDS: None ALLERGIES: Allergies Coded Allergies Type Severity Reaction Last Updated Verified No Known Drug Allergies 06/08/19 No ROS: Negative unless otherwise mentioned above in history of present illness PHYSICAL EXAM: Vital Signs/I&O: Vital Signs Date Time Temp Pulse Resp B/P (MAP) Pulse Ox O2 Delivery O2 Flow Rate FiO2 06/09/19 14:34 98.3 83 20 139/77 (97) 98 Room Air 98.3 Physical Exam: The patient appeared well nourished and normally developed. Head exam is unremarkable. No scleral icterus or corneal arcus noted. Neck is without jugular venous distension, thyromegaly, or carotid bruits. Carotid upstrokes are brisk bilaterally. Lungs are clear to auscultation and percussion. Cardiac exam reveals the PMI to be normally sized and situated. Rhythm is regular. First and second heart sounds normal. No murmurs, rubs or gallops. Abdominal exam reveals normal bowel sounds, no masses, no organomegaly and no aortic enlargement. Extremities are nonedematous and both femoral and pedal pulses are normal. Msk: No traumua Neuro: No focal deficits DIAGNOSTIC TESTING: Cardiac enzymes are unremarkable EKG demonstrates sinus rhythm with a right bundle-branch block and left anterior fascicular block consistent with bifascicular block Previous EKG initially demonstrated sinus rhythm in a bigeminal pattern Chest x-ray is unremarkable Other laboratories and imaging studies reviewed ASSESSMENT: 1. Syncopal episode in the setting of street drug use, no obvious cardiac abnormalities noted on telemetry, objective physical exam findings or laboratory studies PLAN: 1. Given the patient's age, conduction abnormalities noted on his EKG he would be appropriate to consider a outpatient event recorder and an echocardiogram. This information was relayed to the patient and he understood and he will follow-up with his primary care physician for further evaluation and treatment. Discussed with the nursing staff. Patient may be discharged from a cardiac perspective. This call with any further questions. We will try to have him follow up in our office if he is willing to. SAMUEL HAIRSTON MD Jun 09, 2019 21:28
== END 2019-06-09 15:34 | disposition home or self-care (01) | DRG 918 ==
LOC: ER 17:46 → ED HOLD 19:12
PROVIDERS: ADMIT Internal Medicine; ATTEND Internal Medicine
DX: T40.601A Poisoning by unspecified narcotics, accidental (unintentional), initial encounter (principal); I45.81 Long QT syndrome; R55 Syncope and collapse; F41.9 Anxiety disorder, unspecified; G89.29 Other chronic pain; Z96.659 Presence of unspecified artificial knee joint; F43.10 Post-traumatic stress disorder, unspecified; M19.90 Unspecified osteoarthritis, unspecified site; I10 Essential (primary) hypertension; F19.90 Other psychoactive substance use, unspecified, uncomplicated; E66.9 Obesity, unspecified; Z68.31 Body mass index [BMI] 31.0-31.9, adult; Z79.891 Long term (current) use of opiate analgesic; Z90.49 Acquired absence of other specified parts of digestive tract; F19.10 Other psychoactive substance abuse, uncomplicated
CPT/HCPCS: 36415; 70450; 71045; 72125; 80053; 80307; 81001; 83690; 83735; 83880; 84443; 84484; 85025; 93005; J7030